=== PATIENT | male | born 1995 | race Caucasian/White ===

== ENCOUNTER 2017-10-27 21:24 | Emergency (ER) | payer OTHER ==
[~2017-10-27] VITALS: Ht 177.8 cm; Wt 59.0 kg
[2017-10-27] MEDS ORDERED: AMOX-358 PO (21:44)
[2017-10-27] MEDS ORDERED: AUGMENTIN 500 MG TAB (AMOXICILLIN/CLAVULANATE) PO SCH (21:45)
[2017-10-27] MEDS ORDERED: TETANUS,DIPTH,PERTUSS P/F (BOOSTRIX) 0.5 ML VIAL IM ONE (21:45)
--- NOTE | 2017-10-27 21:45 | ED Integumentary General ---
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 You were given proof of the dog's rabies vaccinations being up-to-date. However Adam's tetanus vaccination is not up-to- date. There is a single puncture wound to the back of the right calf. this occurred just prior to arrival. Timing/Duration: just prior to arrival, constant Severity: moderate Location: extremities Allergies and Home Medications Allergies Coded Allergies: No Known Drug Allergies (Unverified , 10/27/17) Home Medications No Active Prescriptions or Reported Meds Patient Home Medication List Home Medication List Reviewed: Yes Constitutional: see HPI EENTM: see HPI Respiratory: no symptoms reported Cardiovascular: no symptoms reported Genitourinary: no symptoms reported Musculoskeletal: no symptoms reported Skin: see HPI Psychiatric/Neurological: No Symptoms Reported Endocrine: No Symptoms Reported Hematologic/Lymphatic: No Symptoms Reported Past Rtfvkvg-Jabzld-Zxdwof Hx Patient Social History Alcohol Use: Occasionally Uses Recreational Drug Use: No Smoking Status: Never a Smoker 2nd Hand Smoke Exposure: No Recent Foreign Travel: No Contact w/Someone Who Travel: No Recent Hopitalizations: No Immunizations Up To Date Tetanus Booster (TDap): More than 5yrs PED Vaccines UTD: Yes Seasonal Allergies Seasonal Allergies: No Past Medical History Surgeries: No Respiratory: No Cardiac: No Neurological: No Genitourinary: No Gastrointestinal: No Musculoskeletal: No Endocrine: No HEENT: No Cancer: No Psychosocial: No Integumentary: No Blood Disorders: No Physical Exam Vital Signs Capillary Refill : General Appearance: WD/WN, no apparent distress HEENT: PERRL/EOMI, normal ENT inspection Neck: non-tender, full range of motion Respiratory: no respiratory distress, no accessory muscle use Extremities: normal range of motion, other (there is a single puncture wound to the posterior right calf without active bleeding. This was cleansed with chlorhexidine/saline solution then covered with Neosporin and gauze and Coban and. He was advised that he could remove this tomorrow and cover with a simple Band-Aid. We will update his tetanus vaccination status and prophylactically treat with Augmentin.) Neurologic/Psychiatric: alert, normal mood/affect, oriented x 3 Skin: normal color, warm/dry Skin Problem Location: lower extremities Progress/Results/Core Measures Results/Orders My Orders Orders - SHANELL OLIVARES APRN Dipht,Pertuss(Acell),Tet Adult (Boostrix (10/27/17 21:45) Amoxicillin/Clavulanate Tablet (Augmenti (10/27/17 21:45) Departure Impression Primary Impression: Dog bite Disposition: HOME, SELF-CARE Condition: Stable Departure-Patient Inst. Decision time for Depature: 21:43 Referrals: NO,LOCAL PHYSICIAN (PCP/Family) Primary Care Physician Patient Instructions: Animal Bites (DC) Add. Discharge Instructions: 1. Antibiotics as directed 2. Tomorrow morning you may remove the dressing and shower as usual. You can either cover this with a Band-Aid beginning tomorrow or leave it open. Scripts Amoxicillin/Potassium Clav (Augmentin 875-125 Tablet) 1 Each Tablet 1 EACH PO BID, #10 TAB Prov: SHANELL OLIVARES APRN 10/27/17 SHANELL OLIVARES APRN Oct 27, 2017 21:45
[2017-10-27 21:55] VITALS: BP 148/98
[2017-10-27] MEDS ORDERED: AUGMENTIN 875 MG TAB (AMOXICILLIN/CLAVULANATE) PO SCH (22:00)
== END 2017-10-27 21:53 | disposition home or self-care (01) ==
LOC: EDUNIT# 21:24 → ER 21:27
DX: S81.831A Puncture wound without foreign body, right lower leg, initial encounter (principal); Z23 Encounter for immunization; W54.0XXA Bitten by dog, initial encounter
CPT/HCPCS: 90471; 90715; 99284